=== PATIENT | male | born 1965 | race Caucasian/White ===

== ENCOUNTER 2016-10-09 10:59 | Emergency (ER) | payer OTHER ==
[~2016-10-09] VITALS: Ht 182.9 cm; Wt 104.3 kg
[2016-10-09 11:13] VITALS: BP 142/100
== END 2016-10-09 12:16 | disposition home or self-care (01) ==
LOC: ER 10:59
DX: S16.1XXA Strain of muscle, fascia and tendon at neck level, initial encounter (principal); I10 Essential (primary) hypertension; J45.909 Unspecified asthma, uncomplicated; X58.XXXA Exposure to other specified factors, initial encounter; Y93.89 Activity, other specified; Y99.8 Other external cause status; Y92.89 Other specified places as the place of occurrence of the external cause

== ENCOUNTER 2019-04-01 19:50 | Emergency (ER) | payer OTHER ==
[~2019-04-01] VITALS: Ht 185.4 cm; Wt 108.0 kg
[2019-04-02] MEDS ORDERED: IPRATROPIUM BROM 0.5 MG/2.5ML INH SOL NEB ONE (00:45)
[2019-04-02] MEDS ORDERED: ALBUTEROL SULF 2.5 MG/0.5ML(0.5%) NEB SOLN NEB ONE (00:45)
[2019-04-02] MEDS ORDERED: methylPREDNISolone SOD SUCC 125 MG/2 ML VL IV ONE (00:45)
[2019-04-02] MEDS ORDERED: KETOROLAC TROMETH 60MG/2ML VIAL IM ONE (07:00)
[2019-04-02 07:30] VITALS: BP 132/82
[2019-04-02] MEDS ORDERED: KETOROLAC TROMETH 30 MG/ML 1ML VIAL IV ONE (07:30)
== END 2019-04-02 09:37 | disposition home or self-care (01) ==
LOC: ER 19:56
DX: G44.89 Other headache syndrome (principal); J45.909 Unspecified asthma, uncomplicated; K21.9 Gastro-esophageal reflux disease without esophagitis; I10 Essential (primary) hypertension
CPT/HCPCS: 70450; 94640; 96374; 96375; 99284; J1885; J2930; J7611; J7644